=== PATIENT | male | born 1995 | race Caucasian/White ===

== ENCOUNTER 2025-07-21 14:01 | Outpatient (CLI) | payer BC, SELFPAY ==
[2025-07-21 14:12] LABS: Add Urine Microscopic? NO; Appearance Urine Clear (Clear); Glucose Urine UA Negative (Negative); Leukocyte Esterase Ur Negative LEU/UL (Negative); Nitrate Urine Negative (Negative); Specific Grav Ur 1.025 (1.010-1.020)
--- OUTSIDE RECORDS SUMMARY | 2025-07-21 14:38 | XMS_ITS | Clinical Summary ---
Author Organization [facility] Address [address] [place] [id number] Care Team Providers Care Peoplesoft Hcm Developer Name Role Phone None, Provider MD Primary Care Provider Unavaila ble Allergies No known active allergies Medications albuterol sulfate HFA 108 (90 Base) MCG/ACT inhaler Q4H 05/02/2023 Act juan carlos busPIRone (BUSPAR) 10 MG tablet Take 1 tablet (10 mg total) by mouth every 8 (eight) hours as needed (Panic). 30 tablet 02/18/2024 Active HYDROcodone-dominique taminophen (NORCO) 5-325 MG tabletIndicatio ns:Acute Pain < 7 Day Supply Take 1-2 tablets by mouth every 6 (six) hours as needed. Indications: Acute Pain < 7 Day Supply 20 tablet 11/15/2024 Active Social History Tobacco Use Types Packs/Day Years Used Date Smoking Tobacco: Never Smokeless Tobacco: Current Tobacco Cessation:Ready to Q uit: Not Asked; Counseling Given: Not Answered Alcohol Use Standard Drinks/Week Comments Not Currently 0 (1 standard drink = 0.6 oz pur e alcohol) Sex and Gender Information Value Date Recorded Sex Assigned at Male 11/15/2024 9:06 PM FAT PURIFICATION WORKER Legal Sex Male 5:46 PM FAT PURIFICATION WORKER Gender Identity Not on file Sexual Orientation Not on file Last Filed Vital Signs Vital Sign Reading Time Taken Comments Blood Pressure 128/91 11/15/2024 9:02 PM FAT PURIFICATION WORKER Pulse 70 11/15/2024 9:02 PM FAT PURIFICATION WORKER Temperature 36.6 C (97.8 F) 11/15/2024 9:02 PM FAT PURIFICATION WORKER Respiratory Rate 18 11/15/2024 9:02 PM FAT PURIFICATION WORKER Oxygen Saturation 97% 11/15/2024 9:02 PM FAT PURIFICATION WORKER Inhaled Oxygen Concentration - - Weight 99.8 kg (220 lb) 11/15/2024 9:02 PM FAT PURIFICATION WORKER Height 182.9 cm (6') 11/15/2024 9:02 PM FAT PURIFICATION WORKER Body Mass Index 29.84 11/15/2024 9:02 PM FAT PURIFICATION WORKER Plan of Treatment Health Maintenance Due Date Last Done Comments Annual Physical 1996 Hepatitis C 2011 DTaP, Tdap and Td Vaccines (1 - Tdap) 2012 06/09/1999, 12/28/1994, 02/01/1994, Additional history exists Hepatitis B Vaccines (1 of 3 - 19+ 3-dose series) 2012 HPV Vaccines (1 - 3-dose SCDM series) 2020 COVID-19 Vaccine ( - season) 2025 Meningococcal B Vaccine Aged Out No l onger eligible based on patient's age to complete this topic Meningococcal Vaccine Aged Out No alessia michele eligible based on patient's age to complete this topic Pneumococcal Vaccine: Pediatrics (0 to 5 Years) and At-Risk Patients (6 to 49 Years) Aged Out No longer eligible based on patient's age to complete this topic RSV Immunizations Under 20 Months Aged Out No longer eligible based on patient's age to complete this topic Insurance MEDICAID [facility] Care Teams Peoplesoft Hcm Developer Relationship Specialty Start Date End Date None, Provider, PCP - General 02/25/20
--- OUTSIDE RECORDS SUMMARY | 2025-07-21 14:38 | XMS_ITS | Encounter Summary ---
Author Organization [facility] Address [address] [place] [id number] Care Team Providers Care Fiber Designer Name Role Phone None, Provider Primary Care Provider Unavaila ble Encounter Details Date Type Department Care Team (Late st Contact Info) Description 03/30/2019 Abstract SFL CONVERSION [address] [place] [id number] , Generic Conversion, Social History Tobacco Use Types Packs/Day Years Used Date Smoking Tobacco: Never Assessed Sex and Gender Information Value Date Recorded Sex Assigned at Male 11/15/2024 9:06 PM GRAVITY PROSPECTING OPERATOR Legal Sex Male 5:46 PM GRAVITY PROSPECTING OPERATOR Gender Identity Not on file Sexual Orientation Not on file documented as of this encounter Plan of Treatment Not on file documented as of this encounter Visit Diagnoses Not on filedocumented in this encounter Care Teams Fiber Designer Relationship Specialty Start Date End Date None, Provider, PCP - General 02/25/20 documented as of this encounter
== END 2025-07-21 14:02 | disposition home or self-care (01) ==
LOC: CHSLAB 14:04
PROVIDERS: PCP Nurse Practitioner Family; Visit Provider Nurse Practitioner Family
DX: R10.9 Unspecified abdominal pain (principal); R31.9 Hematuria, unspecified
CPT/HCPCS: 81003